=== PATIENT | female | born 1950 | race Hispanic/Latino ===

== ENCOUNTER 2022-01-14 08:03 | Emergency (ER) | payer BC, MEDICARE ==
[~2022-01-14] VITALS: Ht 147.3 cm; Wt 75.7 kg
[2022-01-14] MEDS ORDERED: ONDANSETRON HCL INJ 2MG/ML 2ML 2 MG/ML VIAL IV STA (08:21)
[2022-01-14] MEDS ORDERED: Morphine 4mg Syringe 4 MG/ML INJ IV ONE (08:30)
[2022-01-14 08:38] LABS: BASOPHILS # (AUTO) 0.1 (0.0-0.1); BASOPHILS % 0.9 % (0.0-1.0); EOSINOPHILS # (AUTO) 0.1 (0.0-0.4); EOSINOPHILS % 1.1 % (0.0-6.0); HEMATOCRIT 38.8 % (34.2-44.1); HEMOGLOBIN 12.6 g/dL (12.0-16.0); LYMPHOCYTES # (AUTO) 1.3 (1.0-3.2); LYMPHOCYTES % 20.5 % (18.0-39.1); MEAN CORPUSCULAR HEMOGLOBIN 29.6 pg (28-32); MEAN CORPUSCULAR HGB CONC 32.5 g/dL (31-35); MEAN CORPUSCULAR VOLUME 91.1 fL (81-99); MONOCYTES # (AUTO) 0.4 (0.2-0.8); MONOCYTES % 5.8 % (4.4-11.3); NEUTROPHILS # (AUTO) 4.5 (2.1-6.9); NEUTROPHILS % 71.4 % (38.7-80.0); PLATELET COUNT 266 x10e3/uL (140-360); RED BLOOD COUNT 4.26 x10e6/uL (3.6-5.1); RED CELL DISTRIBUTION WIDTH 13.4 % (11.7-14.4)
[2022-01-14] MEDS ORDERED: DIATRIZOATE MEGL/DIATRIZOA SOD 30 ML BTL PO ONE (08:40)
[2022-01-14] MEDS ORDERED: SODIUM CHLORIDE 0.9% 1000ML 1,000 ML ONE (08:42)
[2022-01-14] MEDS ORDERED: SODIUM CHLORIDE 0.9% 1000ML 1,000 ML IV SCH (08:45)
[2022-01-14 08:55] LABS: ALBUMIN 3.7 g/dL (3.5-5.0); ALBUMIN/GLOBULIN RATIO 1.2 (0.8-2.0); ANION GAP 12.1 mmol/L (8-16); CALCIUM 9.3 mg/dL (8.4-10.2); CREATININE, SERUM 0.82 mg/dL (0.57-1.11); POTASSIUM 4.1 mmol/L (3.5-5.1)
[2022-01-14 09:23] LABS: CLARITY,URINE CLEAR (CLEAR); COLOR,URINE YELLOW (YELLOW); KETONES,URINE NEGATIVE (NEGATIVE); LEUKOCYTE ESTERASE ,URINE NEGATIVE (NEGATIVE); NITRITE,URINE NEGATIVE (NEGATIVE); PROTEIN,URINE DIPSTICK NEGATIVE (NEGATIVE); URINE UROBILINOGEN 0.2 mg/dL (0.2 - 1)
[2022-01-14 10:01] LABS: BACTERIA,URINE RARE /HPF; EPITHELIAL CELLS,URINE RARE /LPF; WBC,URINE (MAN) 0-5 /HPF (0-5)
[2022-01-14] MEDS ORDERED: IOPAMIDOL 370 MG/ML 200 ML INFUS..BTL INJ ONE (10:08)
[2022-01-14] MEDS ORDERED: SODIUM CHLORIDE 0.9% 50ML 50 ML ONE (10:08)
[2022-01-14] MEDS ORDERED: IBUPROFEN600 MG PO (12:38)
[2022-01-14] MEDS ORDERED: FLOMAX0.4 MG PO (12:38)
[2022-01-14] MEDS ORDERED: ONDANSETRON ODT4 MG PO (12:38)
[2022-01-14] MEDS ORDERED: HYDROCODON-ACE1 EA11 PO (12:38)
== END 2022-01-14 13:37 | disposition home or self-care (01) ==
LOC: ER 08:44
DX: R10.32 Left lower quadrant pain (principal); N13.2 Hydronephrosis with renal and ureteral calculous obstruction
CPT/HCPCS: 36415; 74177; 80053; 81001; 83690; 85025; 99284; J2270; J2405; J7030; Q9967

== ENCOUNTER 2022-09-10 13:22 | Observation (INO) | payer MEDICARE ==
[~2022-09-10] VITALS: Ht 147.3 cm; Wt 75.7 kg
[~2022-09-10 13:22] MED LIST: FLOMAX0.4 MG PO; HYDROCODON-ACE1 EA11 PO; IBUPROFEN600 MG PO; ONDANSETRON ODT4 MG PO
[2022-09-10] MEDS ORDERED: SODIUM CHLORIDE 0.9% 1000ML 1,000 ML IV STA (13:50)
[2022-09-10] MEDS ORDERED: MECLIZINE HCL 12.5 MG TAB PO NR (14:00)
[2022-09-10 14:03] LABS: BASOPHILS # (AUTO) 0.1 (0.0-0.1); BASOPHILS % 1.2 % (0.0-1.0); EOSINOPHILS # (AUTO) 0.1 (0.0-0.4); HEMOGLOBIN 13.2 g/dL (12.0-16.0); LYMPHOCYTES # (AUTO) 1.1 (1.0-3.2); LYMPHOCYTES % 19.8 % (18.0-39.1); MEAN CORPUSCULAR HEMOGLOBIN 29.5 pg (28-32); MEAN CORPUSCULAR HGB CONC 31.4 g/dL (31-35); MONOCYTES # (AUTO) 0.4 (0.2-0.8); MONOCYTES % 6.3 % (4.4-11.3); NEUTROPHILS # (AUTO) 4.1 (2.1-6.9); NEUTROPHILS % 71.4 % (38.7-80.0); PLATELET COUNT 332 x10e3/uL (140-360); RED BLOOD COUNT 4.47 x10e6/uL (3.6-5.1); RED CELL DISTRIBUTION WIDTH 11.9 % (11.7-14.4)
[2022-09-10] MEDS ORDERED: ONDANSETRON HCL INJ 2MG/ML 2ML 2 MG/ML VIAL IV NR (14:15)
[2022-09-10 14:17] LABS: INR 0.87; PARTIAL THROMBOPLASTIN TIME 28.5 seconds (23.8-35.5); PROTHROMBIN TIME 12.7 seconds (11.9-14.5)
[2022-09-10 14:26] LABS: ALANINE AMINOTRANSFERASE 31 IU/L (0-55); ALBUMIN/GLOBULIN RATIO 1.2 (0.8-2.0); ALKALINE PHOSPHATASE 64 IU/L (40-150); ANION GAP 13.8 mmol/L (8-16); BLOOD UREA NITROGEN 15 mg/dL (7-26); BUN/CREATININE RATIO 23 (6-25); CARBON DIOXIDE 25 mmol/L (22-29); CHLORIDE 105 mmol/L (98-107); CREATINE KINASE 40 IU/L (29-168); CREATININE, SERUM 0.66 mg/dL (0.57-1.11); GLUCOSE 103 mg/dL (74-118); MAGNESIUM 1.9 MG/DL (1.3-2.1); POTASSIUM 3.8 mmol/L (3.5-5.1); SODIUM 140 mmol/L (136-145)
[2022-09-10] MEDS ORDERED: KETOROLAC TROMETHAMINE 30 MG/ML VIAL IV NR (15:30)
[2022-09-10] MEDS ORDERED: ONDANSETRON HCL INJ 2MG/ML 2ML 2 MG/ML VIAL IV PRN (16:45)
[2022-09-10] MEDS ORDERED: MECLIZINE HCL 12.5 MG TAB PO PRN (16:45)
[2022-09-10] MEDS ORDERED: ASPIRIN 81 MG CHEW TAB PO ONE (16:45)
[2022-09-10] MEDS: SODIUM CHLORIDE 0.9% 1000ML 1,000 ML IV SCH (17:33)
[2022-09-10 18:37] VITALS: BP 166/71
[2022-09-10 20:17] VITALS: BP 166/71
[2022-09-10] MEDS: ACETAMINOPHEN 325 MG TAB PO PRN (20:17)
[2022-09-10 21:39] VITALS: BP 155/66
[2022-09-11 01:17] VITALS: BP 152/64
[2022-09-11] MEDS: SODIUM CHLORIDE 0.9% 1000ML 1,000 ML IV SCH ×2 (02:45→12:45)
[2022-09-11 04:00] VITALS: BP 156/69
[2022-09-11 06:16] LABS: BASOPHILS # (AUTO) 0.1 (0.0-0.1); BASOPHILS % 1.1 % (0.0-1.0); EOSINOPHILS # (AUTO) 0.1 (0.0-0.4); EOSINOPHILS % 1.3 % (0.0-6.0); HEMATOCRIT 38.6 % (34.2-44.1); HEMOGLOBIN 12.1 g/dL (12.0-16.0); LYMPHOCYTES # (AUTO) 1.6 (1.0-3.2); LYMPHOCYTES % 30.3 % (18.0-39.1); MEAN CORPUSCULAR HEMOGLOBIN 29.4 pg (28-32); MEAN CORPUSCULAR HGB CONC 31.3 g/dL (31-35); MEAN CORPUSCULAR VOLUME 93.9 fL (81-99); MONOCYTES # (AUTO) 0.4 (0.2-0.8); MONOCYTES % 7.3 % (4.4-11.3); NEUTROPHILS # (AUTO) 3.1 (2.1-6.9); NEUTROPHILS % 59.8 % (38.7-80.0); PLATELET COUNT 288 x10e3/uL (140-360); RED BLOOD COUNT 4.11 x10e6/uL (3.6-5.1); RED CELL DISTRIBUTION WIDTH 11.9 % (11.7-14.4)
[2022-09-11 06:48] LABS: ALBUMIN 3.3 g/dL (3.5-5.0); ALBUMIN/GLOBULIN RATIO 1.2 (0.8-2.0); ANION GAP 11.8 mmol/L (8-16); CALCIUM 8.5 mg/dL (8.4-10.2); CHOL/HDL RATIO 3.8 (3.0-3.6); CREATININE, SERUM 0.64 mg/dL (0.57-1.11); POTASSIUM 3.8 mmol/L (3.5-5.1)
[2022-09-11 07:37] LABS: CREATINE KINASE 38 IU/L (29-168)
[2022-09-11] MEDS: ACETAMINOPHEN 325 MG TAB PO PRN (08:05)
[2022-09-11] MEDS ORDERED: PREDNISONE10 MG PO (08:16)
[2022-09-11] MEDS ORDERED: SULFASALAZINE500 MG PO (08:16)
[2022-09-11] MEDS ORDERED: ZOLPIDEM TARTRAT5 MG PO (08:16)
[2022-09-11] MEDS ORDERED: VITAMIN D2 PO (08:16)
[2022-09-11] MEDS ORDERED: LEVOCETIRIZINE D5 MG PO (08:16)
[2022-09-11] MEDS ORDERED: ULTRAM50 MG PO (08:16)
[2022-09-11] MEDS ORDERED: GABAPENTIN100 MG PO (08:16)
[2022-09-11] MEDS ORDERED: MELOXICAM7.5 MG PO (08:16)
[2022-09-11 08:48] VITALS: BP 122/61
[2022-09-11] MEDS ORDERED: ASPIRIN 81 MG ENTERIC COATED PO SCH (09:00)
[2022-09-11 09:12] VITALS: BP 122/61
[2022-09-11 12:59] VITALS: BP 186/80
== END 2022-09-11 14:20 | disposition home or self-care (01) ==
LOC: ER 13:38 → ERHOLD 16:44 → MED/SURG3 18:19
PROVIDERS: ADMIT Internal Medicine; ATTEND Internal Medicine
DX: H81.10 Benign paroxysmal vertigo, unspecified ear (principal); R07.9 Chest pain, unspecified; R94.31 Abnormal electrocardiogram [ECG] [EKG]; M19.90 Unspecified osteoarthritis, unspecified site; G47.00 Insomnia, unspecified; Z20.822 Contact with and (suspected) exposure to COVID-19
CPT/HCPCS: 0223U; 36415 ×2; 70450; 71045; 80053 ×2; 80061; 82550 ×2; 82553 ×2; 83735; 84484 ×2; 85025 ×2; 85610; 85730; 93005; 99284; G0378 ×2; J1885; J2405; J7030; J8597

== ENCOUNTER → 2024-08-16 | Outpatient (REF) | payer MEDICARE ==
[~2024-08-16] MED LIST changes: +GABAPENTIN100 MG PO; +LEVOCETIRIZINE D5 MG PO; +MELOXICAM7.5 MG PO; +PREDNISONE10 MG PO; +SULFASALAZINE500 MG PO; +ULTRAM50 MG PO; +VITAMIN D2 PO; +ZOLPIDEM TARTRAT5 MG PO
== END ==
LOC: RAD 11:34
PROVIDERS: ATTEND Anesthesiology Pain Medicine
DX: M25.562 Pain in left knee (principal); M25.561 Pain in right knee